=== PATIENT | male | born 2000 | race African-American/Black ===

== ENCOUNTER 2024-03-29 09:36 | Emergency (ER) | payer MEDICAID ==
[~2024-03-29] VITALS: Ht 172.7 cm; Wt 73.0 kg
[2024-03-29 09:42] VITALS: BP 111/81; PULSE 75; RESP 24; TEMP 98.4; O2SAT 98
[2024-03-29] MEDS: IBUPROFEN 600MG TABLET PO ONE (10:36)
[2024-03-29] MEDS ORDERED: IBUP-2029 MT (10:53)
== END 2024-03-29 11:05 | disposition home or self-care (01) ==
LOC: ER 09:50
DX: S83.92XA Sprain of unspecified site of left knee, initial encounter (principal); S83.91XA Sprain of unspecified site of right knee, initial encounter; X58.XXXA Exposure to other specified factors, initial encounter; Y93.89 Activity, other specified; Y92.89 Other specified places as the place of occurrence of the external cause; Y99.8 Other external cause status
CPT/HCPCS: 73560; 99283